=== PATIENT | male | born 1985 | race African-American/Black ===

== ENCOUNTER 2017-11-07 20:05 | Inpatient (IN) | payer SELFPAY ==
[2017-11-08] MEDS ORDERED: ONDANSETRON PF 4 MG/2 ML VIAL. IV
[2017-11-08] MEDS ORDERED: fentaNYL PF VIAL 100 MCG/2 ML VIAL IV
[2017-11-08 00:20] LABS: ADD MAN DIFF? NO
[2017-11-08 00:25] LABS: BASO % 0 % (0-3); EOS # 0.1 x10^3/uL (0.0-0.7); EOS % 2 % (0-3); HEMATOCRIT 33.3 % (39.0-53.0); HEMOGLOBIN 10.8 g/dL (13.0-17.5); LYMPH # 2.3 x10^3/uL (1.0-4.8); LYMPH % 38 % (24-48); MEAN CORPUSCULAR HEMOGLOBIN 24 pg (25-35); MEAN CORPUSCULAR HGB CONC 32 g/dL (31-37); MEAN CORPUSCULAR VOLUME 73 fL (79-100); MONO # 0.7 x10^3/uL (0.0-1.1); MONO % 11 % (0-9); NEUT % 48 % (31-73); PLATELET COUNT 250 x10^3/uL (140-400); RED BLOOD COUNT 4.58 x10^6/uL (4.30-5.70); RED CELL DISTRIBUTION WIDTH 15.8 % (11.5-14.5); WHITE BLOOD COUNT 6.1 x10^3/uL (4.0-11.0)
[2017-11-08 00:35] LABS: INR 1.1 (0.8-1.1); PARTIAL THROMBOPLASTIN TIME 29 SEC (24-38); PROTHROMBIN TIME PATIENT 13.8 SEC (11.7-14.0)
[2017-11-08 00:41] LABS: ANION GAP 9 (6-14); BLOOD UREA NITROGEN 19 mg/dL (8-26); CALCIUM 8.2 mg/dL (8.5-10.1); CARBON DIOXIDE 27 mmol/L (21-32); CHLORIDE 108 mmol/L (98-107); GFR 105.5; GLUCOSE 98 mg/dL (70-99); POTASSIUM 3.6 mmol/L (3.5-5.1); SODIUM 144 mmol/L (136-145)
[2017-11-08 08:57] LABS: % SAT IRON 22 % (15-34); IRON,SERUM 66 ug/dL (65-175)
[2017-11-08 14:01] LABS: FERRITIN 36 ng/mL (26-388)
[2017-11-08] MEDS: IOHEXOL 240 MG/ML 50ML VIAL. PO (14:15)
[2017-11-08] MEDS ORDERED: CONTRAST GIVEN MC (14:15)
[2017-11-08] MEDS ORDERED: ANTI-COAG MONITOR BY PHARMACY. MC (14:15)
[2017-11-08] MEDS: IOHEXOL 300 MG/ML 100ML VIAL. IV (15:45)
[2017-11-08 23:10] LABS: HOMOCYSTINE LEVEL 10.6 umol/L (0.0-15.0)
[2017-11-12 15:33] LABS: HGB A 97.5 % (96.4-98.8); HGB A2 2.5 % (1.8-3.2); HGB ELECROPHORESIS COMMENT Note: (.); HGB SOLUBILITY Negative (Negative)
[2017-11-12 18:15] LABS: PROTHROMBIN GENE MUTATION Negative (.)
== END 2017-11-08 19:25 | disposition home or self-care (01) | DRG 301 ==
LOC: 6 SOUTH 11-08 00:08 → ER 20:05 → 5 NORTH 11-08 01:34
DX: I82.432 Acute embolism and thrombosis of left popliteal vein (principal); D64.9 Anemia, unspecified; F43.10 Post-traumatic stress disorder, unspecified; Z86.718 Personal history of other venous thrombosis and embolism; Z87.81 Personal history of (healed) traumatic fracture
CPT/HCPCS: 36415; 73610; 74177; 80048; 81240; 82728; 83020; 83090; 83540; 83550; 85025; 85220; 85610; 85730; 93971; 99285; 99285-25; J1650; Q9966; Q9967

== ENCOUNTER 2017-12-27 20:11 | Emergency (ER) | payer SELFPAY ==
[2017-12-27] MEDS: HYDROcodone/APAP 5/325MG 1 TAB TABLET PO (21:15)
[2017-12-27 22:00] LABS: INR 2.3 (0.8-1.1); PROTHROMBIN TIME PATIENT 24.2 SEC (11.7-14.0)
== END 2017-12-28 00:10 | disposition home or self-care (01) ==
LOC: ER 12-28 00:10
DX: R60.0 Localized edema (principal); F10.10 Alcohol abuse, uncomplicated
CPT/HCPCS: 36415; 85610; 93971; 99285-25

== ENCOUNTER 2018-06-23 15:35 | Emergency (ER) | payer SELFPAY ==
[~2018-06-23] VITALS: Ht 185.4 cm; Wt 106.6 kg
[~2018-06-23 15:35] MED LIST: APIX5TAB PO; ASPI-630 PO; ASPI325T8 PO; CHOL2000 PO; LISI-334 PO; MULT-245 PO; OXYB10TA PO; OXYB5TAB7 PO; OXYC-323 PO; PRAV40TA2 PO; VITA150T PO; WARF-31 PO; WARF-78 PO; glaucoma eye drops
[2018-06-23] MEDS ORDERED: ACETAMINOPHEN 500 MG TABLET PO ONE (16:30)
--- NOTE | 2018-06-23 16:55 | PHYS DOC ---
Past Medical History Past Medical History: Other Additional Past Medical Histor: BLOOD CLOTS Past Surgical History: Other Additional Past Surgical Histo: KNEE, ANKLE SURGERY, small intestine removal Alcohol Use: Heavy Drug Use: None Adult General Chief Complaint Chief Complaint: RIB PAIN HPI HPI Patient is a 33 year old male who presents with chief complaint of multiple complaints he has a fever sore throat coughing mostly dry cough he has central and right-sided rib pain with coughing. He also has been having heartburn symptoms the last several days he also has leg swelling and pain. On the left. 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 He is off of his anticoagulation for the last 3 months due to insurance complications. Symptoms are sharp moderate worsening with time worse with deep breathing and coughing Review of Systems Review of Systems Constitutional: Eyes: Denies change in visual acuity, redness, or eye pain [] Respiratory: See history of present illness Musculoskeletal: Denies back pain or joint pain [] Neurologic: Denies headache, focal weakness or sensory changes [] All other systems were reviewed and found to be within normal limits, except as documented in this note. Current Medications Current Medications Current Medications Medications (Trade) Dose Ordered Sig/Theresa Start Time Stop Time Status Last Admin Dose Admin Acetaminophen (Tylenol) 1,000 mg 1X ONCE 06/23/18 16:30 06/23/18 16:31 DC 06/23/18 17:06 1,000 MG Allergies Allergies Allergies Coded Allergies Type Severity Reaction Last Updated Verified No Known Drug Allergies 04/06/15 No Physical Exam Physical Exam Constitutional: Well developed, well nourished, no acute distress, non-toxic appearance. [] HENT: Normocephalic, atraumatic, bilateral external ears normal, oropharynx moist, no oral exudates, nose normal. [] Eyes: PERRLA, EOMI, conjunctiva normal, no discharge. [] Neck: Normal range of motion, no tenderness, supple, no stridor. [] Cardiovascular: Mild tachycardia Lungs & Thorax: Bilateral breath sounds clear to auscultation [] Abdomen: Bowel sounds normal, soft, no tenderness, no masses, no pulsatile masses. [] Skin: Warm, dry, no erythema, no rash. [] Back: No tenderness, no CVA tenderness. [] Extremities: No tenderness, no cyanosis, no clubbing, ROM intact,olne plus edema left lower extremtiy Neurologic: Alert and oriented X 3, normal motor function, normal sensory function, no focal deficits noted. [] Psychologic: Affect normal, judgement normal, mood normal. [] Current Patient Data Vital Signs Vital Signs Date Time Temp Pulse Resp B/P (MAP) Pulse Ox O2 Delivery O2 Flow Rate FiO2 06/23/18 19:00 100.0 100.0 06/23/18 19:00 110 23 96 Room Air 06/23/18 18:30 144/63 (90) Lab Values Laboratory Tests Test 06/23/18 16:04 06/23/18 17:30 Influenza Type A Antigen Negative (NEGATIVE) Influenza Type B Antigen Negative (NEGATIVE) White Blood Count 12.0 x10^3/uL (4.0-11.0) H Red Blood Count 5.25 x10^6/uL (4.30-5.70) Hemoglobin 12.6 g/dL (13.0-17.5) L Hematocrit 39.0 % (39.0-53.0) Mean Corpuscular Volume 74 fL (79-100) L Mean Corpuscular Hemoglobin 24 pg (25-35) L Mean Corpuscular Hemoglobin Concent 32 g/dL (31-37) Red Cell Distribution Width 14.2 % (11.5-14.5) Platelet Count 272 x10^3/uL (140-400) Neutrophils (%) (Auto) 77 % (31-73) H Lymphocytes (%) (Auto) 11 % (24-48) L Monocytes (%) (Auto) 11 % (0-9) H Eosinophils (%) (Auto) 0 % (0-3) Basophils (%) (Auto) 1 % (0-3) Neutrophils # (Auto) 9.2 x10^3uL (1.8-7.7) H Lymphocytes # (Auto) 1.4 x10^3/uL (1.0-4.8) Monocytes # (Auto) 1.3 x10^3/uL (0.0-1.1) H Eosinophils # (Auto) 0.0 x10^3/uL (0.0-0.7) Basophils # (Auto) 0.1 x10^3/uL (0.0-0.2) Prothrombin Time 13.1 SEC (11.7-14.0) Prothrombin Time INR 1.0 (0.8-1.1) D-Dimer (Shannan) 0.28 ug/mlFEU (0.00-0.50) Sodium Level 139 mmol/L (136-145) Potassium Level 4.3 mmol/L (3.5-5.1) Chloride Level 101 mmol/L (98-107) Carbon Dioxide Level 27 mmol/L (21-32) Anion Gap 11 (6-14) Blood Urea Nitrogen 16 mg/dL (8-26) Creatinine 1.3 mg/dL (0.7-1.3) Estimated GFR (Cockcroft-Gault) 77.4 BUN/Creatinine Ratio 12 (6-20) Glucose Level 106 mg/dL (70-99) H Calcium Level 9.4 mg/dL (8.5-10.1) Total Bilirubin 0.1 mg/dL (0.2-1.0) L Aspartate Amino Transferase (AST) 15 U/L (15-37) Alanine Aminotransferase (ALT) 26 U/L (16-63) Alkaline Phosphatase 75 U/L (46-116) Troponin I Quantitative < 0.017 ng/mL (0.000-0.055) Total Protein 8.2 g/dL (6.4-8.2) Albumin 3.6 g/dL (3.4-5.0) Albumin/Globulin Ratio 0.8 (1.0-1.7) L Laboratory Tests 06/23/18 17:30 Laboratory Tests 06/23/18 17:30 EKG EKG [] Interpretation Time: EKG shows sinus tachycardia rate of [address] elevation was noted this was interpreted by me the time of the encounter. Radiology/Procedures Radiology/Procedures [] Impressions: IMPRESSION: 1. 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 This is similar compared to the prior study. 2. Note is made that prior suspected nonocclusive thrombus of the popliteal vein on a study performed 12/27/2017 is no longer seen. Electronically signed by: Betty Judge MD (06/23/2018 5:15 PM) [facility] DICTATED and SIGNED BY: BETTY JUDGE MD DATE: 06/23/181711 The heart size and pulmonary vascularity are normal. No pulmonary infiltrate is seen. There is no evidence of pleural fluid. IMPRESSION: No acute cardiopulmonary abnormality is detected. Electronically signed by: Nikolas Calderon MD (06/23/2018 4:59 PM) [facility] DICTATED and SIGNED BY: NIKOLAS CALDERON MD DATE: 06/23/18 0013 Course & Med Decision Making Course & Med Decision Making Pertinent Labs and Imaging studies reviewed. (See chart for details) []This is a 33-year-old male with a history of recurrent DVT of the left lower extremity it started after a ankle surgery apparently he has been off Coumadin due to insurance complications he tells me that he has taken 5 mg of Coumadin and has been very therapeutic without any difficulty at all and that dose. He just doesn't take it because he doesn't have insurance. He coming in with fever sore throat and body aches cough and some chest pain associated with the coughing. I did do an ultrasound to make sure that the DVT had not propagated actually looks a little smaller than as before. I also did a d-dimer to check for an acute thrombus and that was negative so I don't think that we need to do a PE study on this patient. According to the previous notes in with the patient is telling me he has been instructed to very likely take anticoagulation on a chronic basis and so therefore I have prescribed him Coumadin 5 mg a day which was his previous dose and I did tell him the importance of getting follow-up within the next 1-2 weeks including if needed to come back here for an INR so that we can check him again he is not to take the Coumadin without following up and he understands that. Infectious workup was essentially negative the patient has a viral syndrome of some kind strep test negative flu swab negative chest x-ray negative for pneumonia Dragon Disclaimer Dragon Disclaimer This electronic medical record was generated, in whole or in part, using a voice recognition dictation system. Departure Departure Impression: Primary Impression: Fever Disposition: 01 HOME, SELF-CARE Condition: STABLE Referrals: NO PCP (PCP) Scripts Warfarin Sodium (COUMADIN) 5 Mg Tablet 1 TAB PO DAILY, #30 TAB 5 Refills Prov: TARSHA LANGLEY MD 06/23/18 TARSHA LANGLEY MD Jun 23, 2018 16:55
--- NOTE | 2018-06-23 17:02 | RAD ---
Portable chest, 06/23/2018: HISTORY: Chest pain and cough The heart size and pulmonary vascularity are normal. No pulmonary infiltrate is seen. There is no evidence of pleural fluid. IMPRESSION: No acute cardiopulmonary abnormality is detected. Electronically signed by: Nikolas Calderon MD (06/23/2018 4:59 PM) [facility]
--- NOTE | 2018-06-23 17:18 | RAD ---
EXAM: Left lower extremity venous Doppler sonogram. HISTORY: DVT. Pain. Swelling. TECHNIQUE: Moss scale and color Doppler sonographic evaluation of the left lower extremity veins with spectral waveform analysis was performed. FINDINGS: There is nonocclusive chronic appearing thrombus within the proximal and mid aspects of a duplicated left superficial femoral vein. There is normal color flow, normal compressibility and there are normal spectral waveforms within the remainder of the left lower extremity veins. IMPRESSION: 1. 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 This is similar compared to the prior study. 2. Note is made that prior suspected nonocclusive thrombus of the popliteal vein on a study performed 12/27/2017 is no longer seen. Electronically signed by: Btety Gil MD (06/23/2018 5:15 PM) [facility]
[2018-06-23 17:23] LABS: INFLUENZA A PATIENT NEGATIVE (NEGATIVE); INFLUENZA B PATIENT NEGATIVE (NEGATIVE)
[2018-06-23 17:38] LABS: BASO # 0.1 x10^3/uL (0.0-0.2); BASO % 1 % (0-3); EOS % 0 % (0-3); HEMOGLOBIN 12.6 g/dL (13.0-17.5); LYMPH # 1.4 x10^3/uL (1.0-4.8); LYMPH % 11 % (24-48); MEAN CORPUSCULAR HEMOGLOBIN 24 pg (25-35); MEAN CORPUSCULAR HGB CONC 32 g/dL (31-37); MEAN CORPUSCULAR VOLUME 74 fL (79-100); MONO # 1.3 x10^3/uL (0.0-1.1); MONO % 11 % (0-9); NEUT # 9.2 x10^3uL (1.8-7.7); NEUT % 77 % (31-73); PLATELET COUNT 272 x10^3/uL (140-400); RED BLOOD COUNT 5.25 x10^6/uL (4.30-5.70); RED CELL DISTRIBUTION WIDTH 14.2 % (11.5-14.5)
[2018-06-23 17:48] LABS: PROTHROMBIN TIME PATIENT 13.1 SEC (11.7-14.0)
[2018-06-23 17:55] LABS: D-DIMER 0.28 ug/mlFEU (0.00-0.50)
[2018-06-23 17:56] LABS: CALCIUM 9.4 mg/dL (8.5-10.1); CREATININE 1.3 mg/dL (0.7-1.3); GFR 77.4; POTASSIUM 4.3 mmol/L (3.5-5.1)
[2018-06-23 18:02] LABS: ALBUMIN 3.6 g/dL (3.4-5.0); ALBUMIN/GLOBULIN RATIO 0.8 (1.0-1.7); TOTAL BILIRUBIN 0.1 mg/dL (0.2-1.0); TOTAL PROTEIN 8.2 g/dL (6.4-8.2)
[2018-06-23 18:30] VITALS: BP 144/63
[2018-06-23] MEDS ORDERED: WARF-78 PO (18:37)
--- NOTE | 2018-06-23 18:45 | EKG ---
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
== END 2018-06-23 19:14 | disposition home or self-care (01) ==
LOC: ER 15:35
DX: R50.9 Fever, unspecified (principal); J02.9 Acute pharyngitis, unspecified; R07.81 Pleurodynia; M79.89 Other specified soft tissue disorders; R00.0 Tachycardia, unspecified; R12 Heartburn; F10.20 Alcohol dependence, uncomplicated; Y90.9 Presence of alcohol in blood, level not specified; Z86.718 Personal history of other venous thrombosis and embolism
CPT/HCPCS: 36415; 71045; 80053; 84484; 85025; 85379; 85610; 87070; 87804; 87880; 93005; 93971; 99285-25